=== PATIENT | female | born 1995 | race Caucasian/White ===

== ENCOUNTER 2017-03-12 18:45 | Emergency (ER) | payer BC, OTHER ==
[2017-03-12 21:28] LABS: ABSOLUTE EOSINOPHILS # (AUTO) 0.2 10^3/uL (0.0-0.6); ABSOLUTE LYMPHOCYTES (AUTO) 2.8 10^3/uL (0.5-4.7); ABSOLUTE MONOCYTES (AUTO) 0.8 10^3/uL (0.1-1.4); ABSOLUTE NEUT (AUTO) 6.4 10^3/uL (1.7-8.2); BASOPHILS % (AUTO) 0.4 % (0-2); EOSINOPHILS % (AUTO) 2.3 % (0-6); HEMATOCRIT 39.7 % (36.0-47.0); HEMOGLOBIN 13.4 g/dL (12.0-15.5); HGB HCT DIFFERENCE 0.5; LYMPHOCYTES % (AUTO) 27.5 % (13-45); MEAN CORPUSCULAR HGB CONC 33.8 g/dL (32.0-36.0); MEAN CORPUSCULAR VOLUME 92 fl (80-97); MONOCYTES % (AUTO) 7.5 % (3-13); RED BLOOD COUNT 4.33 10^6/uL (3.72-5.28); RED CELL DISTRIBUTION WIDTH 12.8 % (11.5-14.0); SEGMENTED NEUTROPHILS % (AUTO) 62.3 % (42-78); WHITE BLOOD COUNT 10.3 10^3/uL (4.0-10.5)
[2017-03-12 21:36] LABS: APPEARANCE,URINE SLIGHTLY-CLOUDY; BILIRUBIN,URINE NEGATIVE (NEGATIVE); GLUCOSE, URINE NEGATIVE (NEGATIVE); KETONES,URINE NEGATIVE (NEGATIVE); LEUKOCYTE ESTERASE,URINE MODERATE (NEGATIVE); NITRITE,URINE NEGATIVE (NEGATIVE); PROTEIN,URINE NEGATIVE (NEGATIVE); URINE SPECIFIC GRAVITY 1.018; UROBILINOGEN,URINE NEGATIVE mg/dL (<2.0)
[2017-03-12 21:42] LABS: ALANINE AMINOTRANSFERASE 31 U/L (9-52); ALBUMIN 4.5 g/dL (3.5-5.0); ALKALINE PHOSPHATASE 63 U/L (38-126); ANION GAP 11 (5-19); ASPARTATE AMINO TRANSFERASE 16 U/L (14-36); BILIRUBIN,DIRECT 0.3 mg/dL (0.0-0.4); BILIRUBIN,TOTAL 0.5 mg/dL (0.2-1.3); BLOOD UREA NITROGEN 12 mg/dL (7-20); CALCIUM 9.8 mg/dL (8.4-10.2); CARBON DIOXIDE 25 mmol/L (22-30); CHLORIDE 103 mmol/L (98-107); CREATININE RESULT 0.63 mg/dL (0.52-1.25); GLUCOSE 83 mg/dL (75-110); LIPASE 79.7 U/L (23-300); POTASSIUM 4.2 mmol/L (3.6-5.0); SODIUM 138.9 mmol/L (137-145); TOTAL PROTEIN 7.7 g/dL (6.3-8.2)
--- NOTE | 2017-03-12 23:34 | ER Document Report ---
ED Medical Screen (RME) - General Chief Complaint: Abdominal Pain Stated Complaint: ABDOMINAL PAIN Time Seen by Provider: 03/12/17 23:32 Notes: Patient is a 21-year-old female, no past medical history or surgeries, presents with 3 days of worsening right lower quadrant abdominal pain. There is also having nausea. She saw her primary care physician yesterday and had lab work, urine and x-ray that she said was unremarkable. She had a follow-up appointment today and was sent to the ER for possible CT. PE: RLQ tenderness. NAD. RRR. I have greeted and performed a rapid initial assessment of this patient. A comprehensive ED assessment and evaluation of the patient, analysis of test results and completion of the medical decision making process will be conducted by additional ED providers. TRAVEL OUTSIDE OF THE [place] IN LAST 30 DAYS: No - Related Data Allergies/Adverse Reactions: No Known Allergies Allergy (Unverified 03/12/17 19:26) Past Medical History - Social History Chew tobacco use (# tins/day): No Frequency of alcohol use: None Drug Abuse: None Renal/ Medical History: Denies: Hx Peritoneal Dialysis - Immunizations Hx Diphtheria, Pertussis, Tetanus Vaccination: Yes Physical Exam - Vital signs Vitals: Temp Pulse Resp BP Pulse Ox 98.5 F 99 20 151/97 H 99 03/12/17 19:23 03/12/17 19:23 03/12/17 19:23 03/12/17 19:23 03/12/17 19:23 Course - Vital Signs Vital signs: Temp Pulse Resp BP Pulse Ox 98.5 F 99 20 151/97 H 99 03/12/17 19:23 03/12/17 19:23 03/12/17 19:23 03/12/17 19:23 03/12/17 19:23 - Laboratory Result Diagrams: 03/12/17 21:10 03/12/17 21:10 Laboratory results interpreted by me: 03/12/17 21:10 Ur Leukocyte Esterase MODERATE H
--- NOTE | 2017-03-12 23:43 | ER Document Report ---
ED GI/ - General Mode of Arrival: Ambulatory Information source: Patient TRAVEL OUTSIDE OF THE [place] IN LAST 30 DAYS: No - HPI Patient complains to provider of: Abdominal pain, Other - Nausea <TREVIN DECKER - Last Filed: 03/13/17 02:49> <MAEGAN DAVIDSON - Last Filed: 03/13/17 05:36> - General Chief Complaint: Abdominal Pain Stated Complaint: ABDOMINAL PAIN Time Seen by Provider: 03/12/17 23:32 Notes: Patient is a 21-year-old female presents emergency department for 3 days of worsening right lower quadrant abdominal pain. Patient was seen by her PCP yesterday was unremarkable lab work, urine and x-ray. Patient states she was sent to the ER for possible CT scan. Patient states that when she is sitting still her pain is manageable but it is worse when she is walking or doing activity. Patient also complains of nausea. Patient has been taking ibuprofen for her pain which is managing well. Patient has no known allergies. (TREVIN DECKER) - Related Data Allergies/Adverse Reactions: No Known Allergies Allergy (Unverified 03/12/17 19:26) Past Medical History - General Information source: Patient - Social History Smoking Status: Never Smoker Cigarette use (# per day): No Chew tobacco use (# tins/day): No Frequency of alcohol use: None Drug Abuse: None Family History: None Patient has suicidal ideation: No Patient has homicidal ideation: No Surgical Hx: Negative - Immunizations Hx Diphtheria, Pertussis, Tetanus Vaccination: Yes <TREVIN DECKER - Last Filed: 03/13/17 02:49> Review of Systems - Review of Systems Constitutional: No symptoms reported EENT: No symptoms reported Cardiovascular: No symptoms reported Respiratory: No symptoms reported Gastrointestinal: See HPI, Abdominal pain, Nausea Genitourinary: No symptoms reported Female Genitourinary: No symptoms reported Musculoskeletal: No symptoms reported Skin: No symptoms reported Hematologic/Lymphatic: No symptoms reported Neurological/Psychological: No symptoms reported -: Yes All other systems reviewed and negative <TREVIN DECKER - Last Filed: 03/13/17 02:49> Physical Exam - Vital signs Interpretation: Hypertensive <TREVIN DECKER - Last Filed: 03/13/17 02:49> <MAEGAN DAVIDSON - Last Filed: 03/13/17 05:36> - Vital signs Vitals: Temp Pulse Resp BP Pulse Ox 98.5 F 99 20 151/97 H 99 03/12/17 19:23 03/12/17 19:23 03/12/17 19:23 03/12/17 19:23 03/12/17 19:23 - Notes Notes: GENERAL: Alert, interacts well. Mild distress. HEAD: Normocephalic, atraumatic. EYES: Appear normal. Pupils equal, round, and reactive to light. ENT: Moist mucus membranes, tongue midline. NECK: Full range of motion. Supple. Trachea midline. LUNGS: Clear to auscultation bilaterally, no wheezes, rales, or rhonchi. No respiratory distress. HEART: Regular rate and rhythm. No murmurs, gallops, or rubs. ABDOMEN: Soft, tenderness to palpate over the right umbilicus. Non-distended. Normal bowel sounds. EXTREMITIES: Moves all 4 extremities spontaneously. Normal strength. No edema. NEUROLOGICAL: Alert and oriented x3. Normal speech. No focal neurological deficits. GSC 15. PSYCH: Normal affect, normal mood. SKIN: Warm, dry, normal turgor. No rashes or lesions noted. (TREVIN DECKER) Course - Laboratory Result Diagrams: 03/12/17 21:10 03/12/17 21:10 <TREVIN DECKER - Last Filed: 03/13/17 02:49> - Laboratory Result Diagrams: 03/12/17 21:10 03/12/17 21:10 - Diagnostic Test Radiology reviewed: Reports reviewed <MAEGAN DAVIDSON - Last Filed: 03/13/17 05:36> - Re-evaluation Re-evalutation: 03/13/17 Patient with symptoms and CT consistent with epiploic appendagitis. Patient symptoms have been completely relieved with Bentyl. She will be discharged home with the same. Patient also given Zofran. Patient is instructed to follow -up with her doctor. I am unable to give her a copy of her CT report. Otherwise appears well. Blood work within normal limits. Vitals stable. Stable for discharge. Return if any worsening or concerning symptoms. Understands and agrees with plan. Grateful for care. (MAEGAN DAVIDSON) - Vital Signs Vital signs: Temp Pulse Resp BP Pulse Ox 98.2 F 77 16 141/86 H 100 03/13/17 03:28 03/13/17 03:28 03/13/17 03:28 03/13/17 03:28 03/13/17 03:28 - Laboratory Laboratory results interpreted by me: 03/12/17 21:10 Ur Leukocyte Esterase MODERATE H Discharge <TREVIN DECKER - Last Filed: 03/13/17 02:49> <MAEGAN DAVIDSON - Last Filed: 03/13/17 05:36> - Discharge Clinical Impression: Epiploic appendagitis Condition: Stable Disposition: HOME, SELF-CARE Instructions: Abdominal Pain ([facility]) Prescriptions: Dicyclomine HCl [Bentyl 20 mg Tablet] 20 mg PO TIDP PRN #30 tablet PRN Reason: Naproxen [Naprosyn 250 mg Tablet] 250 mg PO DAILY PRN #30 tablet PRN Reason: Forms: Return to Work Scribe Attestation: 03/13/17 05:36 I personally performed the services described in the documentation, reviewed and edited the documentation which was dictated to the scribe in my presence, and it accurately records my words and actions. (MAEGAN DAVIDSON) Scribe Documentation - Scribe Written by Yovanny:: Yovanny Munoz, 03/13/2017 3:00 acting as scribe for :: [email or web address] <TREVIN DECKER - Last Filed: 03/13/17 02:49>
[2017-03-13] MEDS ORDERED: DICYCLOMINE HCL 20 MG TABLET PO ONE (02:32)
[2017-03-13] MEDS ORDERED: ONDANSETRON ODT 4 MG TAB (6 TAB/DSPK) PO PRN (03:22)
[2017-03-13] MEDS ORDERED: HYDROCODONE/ACETAMINOPHEN 5-325 MG 6 TAB/DSPK PO PRN (03:22)
[2017-03-13 03:32] VITALS: BP 141/86
--- NOTE | 2017-03-15 00:38 | RADIOLOGY REPORT (SQ) ---
EXAM DESCRIPTION: CT ABD/PELVIS WITH IV ONLY COMPLETED DATE/TIME: 03/13/2017 1:17 am REASON FOR STUDY: RLQ pain COMPARISON: None. TECHNIQUE: 100 cc Isovue 370, IV contrast only. CT of the abdomen pelvis with coronal and sagittal reformations. Delayed imaging. LIMITATIONS: None. FINDINGS: Small, oval pericolonic fat nodule with hyperdense ring and surrounding inflammation assoc iated with the proximal transverse colon, image 52 of series 3 consistent with epiploic appendagitis. No significant free fluid and no free air. No evidence of appendicitis. Appendix is not definitiv johnny discerned. Moderate malrotation of the right kidney. Small L5-S1 disc bulge. Inferior chest, liver, spleen, gallbladder, pancreas, adrenal glands, renal system, gastrointestinal tract, pelvic organs, vasculature, lymphatics, and muscle skeleton appear otherwise intact. IMPRESSION: Epiploic appendagitis of the proximal transverse colon. TECHNICAL DOCUMENTATION: Job ID: [id number] [employer]- All Rights Reserved
== END 2017-03-13 03:35 | disposition home or self-care (01) ==
LOC: ER 18:45
DX: K63.89 Other specified diseases of intestine (principal); R10.31 Right lower quadrant pain; R11.0 Nausea; R10.815 Periumbilic abdominal tenderness
CPT/HCPCS: 99284; 36415; 83690; 85025; 81025; 80053; 81001; 74177; J3490

== ENCOUNTER 2017-12-18 21:20 | Emergency (ER) | payer BC ==
[2017-12-18 22:21] LABS: APPEARANCE,URINE SLIGHTLY-CLOUDY; BILIRUBIN,URINE NEGATIVE (NEGATIVE); COLOR,URINE YELLOW; GLUCOSE, URINE NEGATIVE (NEGATIVE); KETONES,URINE NEGATIVE (NEGATIVE); LEUKOCYTE ESTERASE,URINE TRACE (NEGATIVE); NITRITE,URINE NEGATIVE (NEGATIVE); PROTEIN,URINE 30 mg/dL (NEGATIVE); URINE SPECIFIC GRAVITY 1.021; UROBILINOGEN,URINE NEGATIVE mg/dL (<2.0)
[2017-12-18] MEDS ORDERED: CEPHALEXIN 500 MG CAPSULE PO ONE (23:14)
--- NOTE | 2017-12-18 23:18 | ER Document Report ---
ED General - General Chief Complaint: Urinary Problem Stated Complaint: ABDOMINAL PAIN Time Seen by Provider: 12/18/17 22:38 Notes: Patient is a 22-year-old female without chronic medical problems who presents with 3 days of dysuria and 1 day of suprapubic abdominal discomfort. She describes the abdominal discomfort as being an aching, throbbing soreness. Touching the area worsens the pain. Nothing improves the pain. She denies a history of similar symptoms in the past although she states that her initial symptoms felt more like a urinary tract infection. She denies any associated fever or constitutional symptoms. She has not seen her primary doctor regarding today's concerns. TRAVEL OUTSIDE OF THE [place] IN LAST 30 DAYS: No - Related Data Allergies/Adverse Reactions: No Known Allergies Allergy (Verified 12/18/17 22:32) Past Medical History - General Information source: Patient - Social History Smoking Status: Never Smoker Chew tobacco use (# tins/day): No Frequency of alcohol use: None Drug Abuse: None Lives with: Spouse/Significant other Family History: Reviewed & Not Pertinent Patient has suicidal ideation: No Patient has homicidal ideation: No Renal/ Medical History: Denies: Hx Peritoneal Dialysis - Immunizations Hx Diphtheria, Pertussis, Tetanus Vaccination: Yes Review of Systems - Review of Systems Notes: Constitutional: Negative for fever. HENT: Negative for sore throat. Eyes: Negative for visual changes. Cardiovascular: Negative for chest pain. Respiratory: Negative for shortness of breath. Gastrointestinal: Positive for lower abdominal pain Genitourinary: Positive for dysuria Musculoskeletal: Negative for back pain. Skin: Negative for rash. Neurological: Negative for headaches, weakness or numbness. 10 point ROS negative except as marked above and in HPI. Physical Exam - Vital signs Vitals: Temp Pulse Resp BP Pulse Ox 98.2 F 93 18 150/95 H 99 12/18/17 23:28 12/18/17 23:28 12/18/17 23:28 12/18/17 23:28 12/18/17 23:28 Interpretation: Hypertensive Notes: PHYSICAL EXAMINATION: GENERAL: Well-appearing, well-nourished and in no acute distress. HEAD: Atraumatic, normocephalic. EYES: Pupils equal round and reactive to light, extraocular movements intact, sclera anicteric, conjunctiva are normal. ENT: nares patent, oropharynx clear without exudates. Moist mucous membranes. NECK: Normal range of motion, supple without lymphadenopathy LUNGS: Breath sounds clear to auscultation bilaterally and equal. No wheezes rales or rhonchi. HEART: Regular rate and rhythm without murmurs ABDOMEN: Soft, mild suprapubic abdominal tenderness but no other localized areas of tenderness, normoactive bowel sounds. No guarding, no rebound. No masses appreciated. EXTREMITIES: Normal range of motion, no pitting or edema. No cyanosis. NEUROLOGICAL: No focal neurological deficits. Moves all extremities spontaneously and on command. PSYCH: Normal mood, normal affect. SKIN: Warm, Dry, normal turgor, no rashes or lesions noted. Course - Re-evaluation Re-evalutation: 12/18/17 23:14 Your urine shows findings consistent with a urinary tract infection. Please take all the antibiotics as directed even if your symptoms have improved. Please follow-up with your primary care physician as needed. Return to emergency room if you develop fever >101F, persistent vomiting, become lethargic , have severe pain in your sides, or any other symptoms that are concerning to you. - Vital Signs Vital signs: Temp Pulse Resp BP Pulse Ox 98.2 F 93 18 150/95 H 99 12/18/17 23:28 12/18/17 23:28 12/18/17 23:28 12/18/17 23:28 12/18/17 23:28 - Laboratory Laboratory results interpreted by me: 12/18/17 21:57 Urine Protein 30 H Urine Blood SMALL H Ur Leukocyte Esterase TRACE H Discharge - Discharge Clinical Impression: Suprapubic abdominal pain Urinary tract infection Qualifiers: Urinary tract infection type: acute cystitis Hematuria presence: without hematuria Qualified Code(s): N30.00 - Acute cystitis without hematuria Condition: Good Disposition: HOME, SELF-CARE Additional Instructions: Your urine shows findings consistent with a urinary tract infection. Please take all the antibiotics as directed even if your symptoms have improved. Please follow-up with your primary care physician as needed. Return to emergency room if you develop fever >101F, persistent vomiting, become lethargic , have severe pain in your sides, or any other symptoms that are concerning to you. Prescriptions: Cephalexin Monohydrate [Keflex 500 mg Capsule] 500 mg PO Q6H 5 Days capsule Referrals: ZEE,IVANNA, PA-C [Primary Care Provider] - Follow up as needed
[2017-12-18 23:32] VITALS: BP 150/95
== END 2017-12-18 23:30 | disposition home or self-care (01) ==
LOC: ER 21:20
DX: N30.00 Acute cystitis without hematuria (principal); R10.30 Lower abdominal pain, unspecified
CPT/HCPCS: 36415; 81001; 81025; 87086; 87088; 87186; 99283

== ENCOUNTER 2019-12-18 20:03 | Outpatient (CLI) | payer BC ==
[2019-12-18 20:39] LABS: APPEARANCE,URINE SLIGHTLY-CLOUDY; BILIRUBIN,URINE NEGATIVE (NEGATIVE); COLOR,URINE YELLOW; GLUCOSE, URINE NEGATIVE (NEGATIVE); KETONES,URINE 80 mg/dL (NEGATIVE); LEUKOCYTE ESTERASE,URINE TRACE (NEGATIVE); NITRITE,URINE NEGATIVE (NEGATIVE); PROTEIN,URINE NEGATIVE (NEGATIVE); URINE SPECIFIC GRAVITY 1.023; UROBILINOGEN,URINE NEGATIVE mg/dL (<2.0)
[2019-12-18 20:59] LABS: URINE AMPHETAMINES SCREEN NEGATIVE; URINE BARBITURATES SCREEN NEGATIVE; URINE BENZODIAZEPINES SCREEN NEGATIVE; URINE COCAINE SCREEN NEGATIVE; URINE MARIJUANA (THC) SCREEN NEGATIVE; URINE METHADONE SCREEN NEGATIVE; URINE PHENCYCLIDINE SCREEN NEGATIVE
--- NOTE | 2019-12-18 21:05 | Non Stress Test Report ---
Non Stress Test Datetime Report Generated by CPN: 12/18/2019 21:04 DEMOGRAPHIC EGA NST: 33.1 INDICATION Indication for Study (NST) Other: LC URINE RESULTS Urine Protein, NST: Negative Urine Ketones - NST: Positive Urine Glucose - NST: Negative Urine Blood - NST: Negative MONITORING Monitor Explained: Monitor Explained; Test Explained; Patient Verbalized Understanding Time on Monitor: 12/18/2019 20:18 Time off Monitor: 12/18/2019 20:43 NST Duration: 25 NST INTERVENTIONS NST Interventions: PO Hydration; Reposition Patient Physician Notified NST: Carter BABY A: [id number] BABY A Movement : Present Contraction Frequency : 0 FHR Baseline : 145 Accelerations : 15X15 Decelerations : None Variability : Moderate 6-25bpm NST Review: Meets Criteria for Reactive NST NST Review and Verified By : Jayshree Herman RN NST Results: Reactive NST REPORT Report Trigger: Send Report
== END 2019-12-18 21:08 | disposition home or self-care (01) ==
LOC: LC 20:03
PROVIDERS: ATTEND Obstetrics & Gynecology Gynecology
DX: O24.419 Gestational diabetes mellitus in pregnancy, unspecified control (principal); Z3A.33 33 weeks gestation of pregnancy; W19.XXXA Unspecified fall, initial encounter
CPT/HCPCS: 59025; 80307; 81005

== ENCOUNTER 2020-02-04 02:50 | Inpatient (IN) | payer BC ==
[2020-02-04] MEDS: RINGERS SOLUTION,LACTATED 1,000 ML IV PRN ×3 (03:27→14:00)
[2020-02-04 03:38] LABS: ABSOLUTE BASOPHILS # (AUTO) 0.1 10^3/uL (0.0-0.2); ABSOLUTE EOSINOPHILS # (AUTO) 0.2 10^3/uL (0.0-0.6); ABSOLUTE LYMPHOCYTES (AUTO) 2.2 10^3/uL (0.5-4.7); ABSOLUTE NEUT (AUTO) 9.4 10^3/uL (1.7-8.2); BASOPHILS % (AUTO) 0.5 % (0-2); EOSINOPHILS % (AUTO) 1.2 % (0-6); HEMATOCRIT 37.5 % (36.0-47.0); HEMOGLOBIN 12.8 g/dL (12.0-15.5); LYMPHOCYTES % (AUTO) 17.2 % (13-45); MEAN CORPUSCULAR HEMOGLOBIN 30.9 pg (27.0-33.4); MEAN CORPUSCULAR HGB CONC 34.1 g/dL (32.0-36.0); MEAN CORPUSCULAR VOLUME 91 fl (80-97); MONOCYTES % (AUTO) 8.1 % (3-13); PLATELET COUNT 288 10^3/uL (150-450); RED BLOOD COUNT 4.13 10^6/uL (3.72-5.28); TOTAL CELLS COUNTED % (AUTO) 100 %; WHITE BLOOD COUNT 12.9 10^3/uL (4.0-10.5)
[2020-02-04 04:01] LABS: APPEARANCE,URINE SLIGHTLY-CLOUDY; BILIRUBIN,URINE NEGATIVE (NEGATIVE); COLOR,URINE YELLOW; GLUCOSE, URINE NEGATIVE (NEGATIVE); KETONES,URINE NEGATIVE (NEGATIVE); LEUKOCYTE ESTERASE,URINE TRACE (NEGATIVE); NITRITE,URINE NEGATIVE (NEGATIVE); PROTEIN,URINE NEGATIVE (NEGATIVE); URINE SPECIFIC GRAVITY 1.018; UROBILINOGEN,URINE NEGATIVE mg/dL (<2.0)
[2020-02-04 04:23] LABS: URINE AMPHETAMINES SCREEN NEGATIVE; URINE BARBITURATES SCREEN NEGATIVE; URINE BENZODIAZEPINES SCREEN NEGATIVE; URINE COCAINE SCREEN NEGATIVE; URINE MARIJUANA (THC) SCREEN NEGATIVE; URINE METHADONE SCREEN NEGATIVE; URINE PHENCYCLIDINE SCREEN NEGATIVE
[2020-02-04 05:14] LABS: ALBUMIN 3.6 g/dL (3.5-5.0); ALKALINE PHOSPHATASE 100 U/L (38-126); ASPARTATE AMINO TRANSFERASE 16 U/L (14-36); BILIRUBIN,TOTAL 0.3 mg/dL (0.2-1.3); BLOOD UREA NITROGEN 15 mg/dL (7-20); CALCIUM 9.9 mg/dL (8.4-10.2); CHLORIDE 107 mmol/L (98-107); GLUCOSE 87 mg/dL (75-110); POTASSIUM 4.4 mmol/L (3.6-5.0); TOTAL PROTEIN 6.5 g/dL (6.3-8.2)
[2020-02-04 05:24] LABS: ANION GAP 7 (5-19); CARBON DIOXIDE 21 mmol/L (22-30)
[2020-02-04] MEDS ORDERED: LABETALOL HCL INJ 20 MG/4 ML DISP.SYRIN IV ONE ×2 (08:08→08:12)
[2020-02-04] MEDS ORDERED: OXYTOCIN/0.9 % SODIUM CHLORIDE 30 UNIT/500 ML RTUINJ IV PRN ×2 (09:20→19:32)
[2020-02-04] MEDS ORDERED: OXYTOCIN/0.9 % SODIUM CHLORIDE 30 UNIT/500 ML RTUINJ ONE (09:22)
[2020-02-04] MEDS ORDERED: LABETALOL HCL 200 MG TABLET ONE (09:24)
[2020-02-04] MEDS ORDERED: LEVOTHYROXINE SODIUM 0.05 MG TABLET ONE (09:24)
[2020-02-04] MEDS: LABETALOL HCL 200 MG TABLET PO SCH ×2 (09:27→22:44)
[2020-02-04] MEDS ORDERED: NALBUPHINE HCL INJ 10 MG/1 ML AMPULE ONE (10:01)
[2020-02-04] MEDS ORDERED: PROMETHAZINE HCL INJ 25 MG/1 ML VIAL ONE (10:01)
[2020-02-04] MEDS ORDERED: NALBUPHINE HCL INJ 10 MG/1 ML AMPULE IV ONE (10:05)
[2020-02-04] MEDS ORDERED: PROMETHAZINE HCL INJ 25 MG/1 ML VIAL IV ONE (10:05)
--- NOTE | 2020-02-04 10:19 | Admission Physical ---
Datetime Report Generated by CPN: 02/04/2020 10:19 CURRENT ADMISSION Chief Complaint: Suspected Ruptured Membranes Chief Complaint Other: Reports SROM at approximately 0150 and fluid was clear.. Irregular ctx. Good FM Admit Impression : Term, Intrauterine ; Ruptured Membranes Admit Plan: Admit to Unit; Initiate Labor Protocol; Initiate Labor Augmentation Protocol ALLERGIES Medication Allergies: No Medication Allergies: No Known Allergies (12/18/2019) Latex: No Latex Allergies OBSTETRICAL HISTORY EDC: 02/04/2020 00:00 : 2 Para: 0 Term: 0 : 0 SAB: 1 IAB: 0 Ectopic: 0 Livin Cesareans: 0 VBACs: 0 Multiple Births: 0 Gestational Diabetes: Yes Rh Sensitization: No Incompetent Cervix: No AWA: No Infertility: No ART Treatment: No Uterine Anomaly: No IUGR: No Hx Previous C/S: No Macrosomia: No Hx Loss/Stillborn: No PIH: No Hx : No Placenta Previa/Abruption: No Depression/PP Depression: No PTL/PROM: No Post Hemorrhage: No Current Procedures: Ultrasound; NST Obstetrical History Comments: G1: chemical preg G2: GDM on metformin 500mg TID, CHTN on baby ASA SEE RECORDS Alcohol: No Marijuana : No Cocaine: No Other Illicit Drugs: No Cigarettes: Never Smoker. [id number] MEDICAL HISTORY Diabetes: No Diabetes Type: Gestational Diabetes Blood Transfusion: No Pulmonary Disease (Asthma, TB): No Breast Disease: No Hypertension: Unknown Dredge Hand Surgery: No Heart Disease: No Hosp/Surgery: No Autoimmune Disorder: No Anesthetic Complications: No Kidney Disease: No Abnormal Pap Smear: No Neuro/Epilepsy: No Psychiatric Disorders: No Other Medical Diseases: No Hepatitis/Liver Disease: No Significant Family History: No Varicosities/Phlebitis: No Trauma/Violence : No Thyroid Dysfunction: Yes Medical History Comments: GDM, hypothyroidism (takes synthroid), tubes in ears as a child, CHTN, PCOS INFECTIOUS HISTORY Gonorrhea: No Genital Herpes: No Chlamydia: No Tuberculosis: No Syphilis: No Hepatitis: No HIV/AIDS Exposure: No Rash or Viral Illness: No HPV: No PHYSICAL EXAM General: Normal HEENT: Normal Neurologic: Normal Thyroid: Normal Heart: Normal Lungs: Normal Breast: Normal Back: Normal Abdomen: Normal Genitourinary Exam: Normal Extremities: Normal DTRs: Normal Pelvic Type: Adequate Vital Signs: Reviewed Details Vital Signs: Elevated blood pressures: Hx of cHTN no meds VAGINAL EXAM Dilatation: 1 Effacement: 60 Station: -2 Contraction Comments: irregular MEMBRANES Pooling: Positive Membranes: Ruptured Amniotic Fluid Color: Clear FETUS A EGA: 40.0 Monitoring: External US FHR- Baseline: 130 Variability: Moderate 6-25bpm Accelerations: 15X15 Decelerations: None FHR Category: Category I Presentation: Vertex Admit Comment: at 40.0 wks EGA with SROM at 0150, clear -Admit to LDR -CEFM and toco -NPO and IVFs: LR at 125 cc/hr after 1 liter bolus -GBS negative -Hx of cHTN and now elevated b/p's . Labs on admit normal but will add a P:C . Received Labetolol 20mg x1 this am for severe range b/p. Labetolol 200mg BID PO started as well. Monitor for severe preeclampsia and if develops: will need Mag sulfate for seizure prophylaxis -Continue home meds Metformin for A2GDM and Synthroid for hypothyroidism -If no regular contractions, Begin pitocin at low dosem and titrate per order -Anticipate PLANS FOR LABOR AND DELIVERY Labor and Delivery: Plan Pain Management: Natural Other Pain Management Plans: unsure Feeding Preference: Breast Benefit of Breast Feed Discussed: Yes Circumcision: No INFORMED CONSENT Informed Consent Obtained: Vaginal Delivery; Section Delivery; Risks, Benefits and Alternatives Discussed Signature: with User ID: Stevan : with User ID: Stevan
[2020-02-04] MEDS ORDERED: FENTANYL CITRATE INJ/PF 100 MCG/2 ML AMPUL ONE (10:47)
[2020-02-04] MEDS ORDERED: BUPIVACAINE HCL 0.25 % INJ/PF (2.5 MG/1 ML) 30 ML VIAL ONE (10:48)
[2020-02-04] MEDS ORDERED: FENTANYL/BUPIVACAINE/NS/PF 300 MCG/150 ML RTUINJ EPI ONE (10:48)
[2020-02-04] MEDS ORDERED: EPHEDRINE SULFATE INJ 50 MG/1 ML AMPULE ONE (10:48)
[2020-02-04] MEDS ORDERED: MISOPROSTOL 0.2 MG TABLET ONE (11:56)
[2020-02-04] MEDS: LEVOTHYROXINE SODIUM 0.025 MG TABLET PO SCH (14:00)
[2020-02-04] MEDS: METFORMIN HCL 500 MG TABLET PO SCH ×2 (14:00→21:20)
[2020-02-04 14:48] LABS: UR PRO/CREAT RATIO RESULT 0.5 mg/mg (0.0-0.2); URINE CREATININE 24.6 mg/dL (16-327); URINE PROTEIN 12.1 mg/dL (<12)
[2020-02-04] MEDS ORDERED: GENTAMICIN SULFATE INJ 80 MG/2 ML VIAL ONE (16:36)
[2020-02-04] MEDS ORDERED: AMPICILLIN SOD INJ 2 GM VIAL ONE ×2 (16:37→22:24)
[2020-02-04] MEDS ORDERED: GENTAMICIN SULFATE INJ 80 MG/2 ML VIAL IV SCH ×2 (17:00→18:00)
[2020-02-04] MEDS ORDERED: AMPICILLIN SOD INJ 2 GM VIAL IM SCH (17:00)
[2020-02-04] MEDS ORDERED: AMPICILLIN SOD INJ 2 GM VIAL IV SCH ×2 (17:30→18:00)
[2020-02-04] MEDS ORDERED: ACETAMINOPHEN 1,000 MG/100 ML RTUPB IV ONE (18:00)
[2020-02-04] MEDS ORDERED: ACETAMINOPHEN 1,000 MG/100 ML RTUPB IV PRN (18:01)
[2020-02-04] MEDS ORDERED: LIDOCAINE 1% INJ-PF (10 MG/ML) 30 ML SDV ONE (19:10)
[2020-02-04] MEDS ORDERED: IBUPROFEN 800 MG TABLET ONE (19:29)
[2020-02-04] MEDS ORDERED: PSEUDOEPHEDRINE HCL 30 MG TABLET PO PRN (19:32)
[2020-02-04] MEDS ORDERED: DIPHENHYDRAMINE HCL 25 MG CAPSULE PO PRN (19:32)
[2020-02-04] MEDS ORDERED: PROMETHAZINE HCL 25 MG SUPP.RECT PR PRN (19:32)
[2020-02-04] MEDS ORDERED: ZOLPIDEM TARTRATE 5 MG TABLET PO PRN (19:32)
[2020-02-04] MEDS ORDERED: MAGNESIUM HYDROXIDE SUSP 30 ML UDCUP PO PRN (19:32)
[2020-02-04] MEDS ORDERED: MEASLES,MUMPS&RUBELLA VACC/PF 0.5 ML VIAL SUBCUT PRN (19:32)
[2020-02-04] MEDS ORDERED: ACETAMINOPHEN WITH CODEINE #3 TABLET PO PRN ×2 (19:32)
[2020-02-04] MEDS ORDERED: NA PHOS,M-B/NA PHOS,DI-BA (ADULT) 133 ML ENEMA PR PRN (19:32)
[2020-02-04] MEDS ORDERED: DIBUCAINE 1% OINTMENT 28 GM TP PRN (19:32)
[2020-02-04] MEDS ORDERED: GLYCERIN/WITCH HAZEL LEAF 1 EACH MED..WIPE TP PRN (19:32)
[2020-02-04] MEDS ORDERED: ACETAMINOPHEN 325 MG TABLET PO PRN (19:32)
[2020-02-04] MEDS ORDERED: DIPH/PERTUSS(ACELL)/TETANUS VAC/PF 0.5 ML SYR (>=10YO) IM PRN (19:32)
[2020-02-04] MEDS ORDERED: PROMETHAZINE HCL INJ 25 MG/1 ML VIAL IV PRN (19:32)
[2020-02-04] MEDS ORDERED: PROMETHAZINE HCL 25 MG TABLET PO PRN (19:32)
[2020-02-04] MEDS ORDERED: ACETAMINOPHEN 650 MG SUPP.RECT PR PRN (19:32)
[2020-02-04] MEDS: IBUPROFEN 800 MG TABLET PO SCH (21:14)
[2020-02-04] MEDS: FAMOTIDINE 20 MG TABLET PO SCH (22:44)
[2020-02-04] MEDS: AMPICILLIN SODIUM 2 GM in NORMAL SALINE 100 ML IV SCH (22:45)
[2020-02-05] MEDS ORDERED: AMPICILLIN SOD INJ 2 GM VIAL ONE (01:13)
[2020-02-05] MEDS ORDERED: GENTAMICIN SULFATE INJ 80 MG/2 ML VIAL ONE (01:13)
[2020-02-05] MEDS: GENTAMICIN SULFATE 140 MG in DEXTROSE 5%-WATER 100 ML IV SCH ×3 (01:28→17:54)
[2020-02-05] MEDS: LEVOTHYROXINE SODIUM 0.025 MG TABLET PO SCH (05:14)
[2020-02-05] MEDS: IBUPROFEN 800 MG TABLET PO SCH ×3 (05:14→21:34)
[2020-02-05] MEDS: AMPICILLIN SODIUM 2 GM in NORMAL SALINE 100 ML IV SCH ×3 (05:14→17:16)
[2020-02-05 07:53] LABS: HEMATOCRIT 30.7 % (36.0-47.0); HEMOGLOBIN 10.9 g/dL (12.0-15.5); MEAN CORPUSCULAR HEMOGLOBIN 31.9 pg (27.0-33.4); MEAN CORPUSCULAR HGB CONC 35.3 g/dL (32.0-36.0); MEAN CORPUSCULAR VOLUME 90 fl (80-97); PLATELET COUNT 210 10^3/uL (150-450); RED CELL DISTRIBUTION WIDTH 13.7 % (11.5-14.0); WHITE BLOOD COUNT 14.4 10^3/uL (4.0-10.5)
[2020-02-05] MEDS: METFORMIN HCL 500 MG TABLET PO SCH ×3 (08:28→17:16)
--- NOTE | 2020-02-05 08:57 | PDOC PROGRESS REPORT ---
Subjective-OB Progress Note for:: 02/05/20 Subjective: Doing well, no concerns. She reports light bleeding, reg diet and voiding without difficulty. Physical Exam (OB) Vital Signs: Temp Pulse Resp BP Pulse Ox 97.5 F 89 16 102/58 L 98 02/05/20 03:06 02/05/20 03:06 02/05/20 03:06 02/05/20 03:06 02/05/20 03:06 Intake & Output 02/04/20 02/05/20 02/06/20 06:59 06:59 06:59 Intake Total 1521.5 Balance 1521.5 Weight 92.5 kg - Lochia Lochia Amount: Scant < 10 ml Lochia Color: Rubra/Red - Abdomen Description: Tender, Soft Hernia Present: No Fundal Description: Firm, Midline Fundal Height: u/u - u/2 Objective-Diagnostic Laboratory: 02/05/20 07:19 02/04/20 03:27 02/05/20 07:19 WBC 14.4 H RBC 3.40 L Hgb 10.9 L Hct 30.7 L MCV 90 MCH 31.9 MCHC 35.3 RDW 13.7 Plt Count 210 Assessment and Plan(PN) - Assessment and Plan (1) (normal spontaneous vaginal delivery) Is this a current diagnosis for this admission?: Yes (2) Second degree perineal laceration Is this a current diagnosis for this admission?: Yes (3) Chorioamnionitis, delivered, current hospitalization Is this a current diagnosis for this admission?: Yes (4) PCOS (polycystic ovarian syndrome) Is this a current diagnosis for this admission?: Yes (5) Chronic hypertension affecting Is this a current diagnosis for this admission?: Yes - Time Spent with Patient Time with patient: Less than 15 minutes Medications reviewed and adjusted accordingly: Yes - Disposition Anticipated Discharge: Home Within: within 24 hours
[2020-02-05] MEDS: FERROUS SULFATE 325 MG TABLET PO SCH ×2 (10:20→17:16)
[2020-02-05] MEDS: FAMOTIDINE 20 MG TABLET PO SCH ×2 (10:20→21:36)
[2020-02-05] MEDS: LABETALOL HCL 200 MG TABLET PO SCH ×2 (10:20→21:32)
[2020-02-05] MEDS: SENNOSIDES/DOCUSATE 8.6-50 MG 1 EACH TABLET PO SCH (10:20)
[2020-02-05] MEDS: DOCUSATE SODIUM 100 MG CAPSULE PO SCH ×2 (10:20→17:16)
[2020-02-05] MEDS: PRENATAL VITAMIN W DHA CAPSULE PO SCH (10:20)
[2020-02-05] MEDS: BENZOCAINE/MENTHOL AEROSOL SPRAY 56 ML TOP PRN (19:51)
[2020-02-06] MEDS: LEVOTHYROXINE SODIUM 0.025 MG TABLET PO SCH (06:13)
[2020-02-06] MEDS: IBUPROFEN 800 MG TABLET PO SCH ×2 (06:13→14:24)
[2020-02-06] MEDS: METFORMIN HCL 500 MG TABLET PO SCH ×2 (07:37→11:58)
[2020-02-06 08:41] VITALS: BP 139/89
--- NOTE | 2020-02-06 09:08 | PDOC PROGRESS REPORT ---
Subjective-OB Progress Note for:: 02/06/20 Subjective: Doing well, eating bkf, hsb at BS, , no c/o Physical Exam (OB) Vital Signs: Temp Pulse Resp BP Pulse Ox 97.1 F 75 16 139/89 H 99 02/06/20 08:38 02/06/20 08:38 02/06/20 08:38 02/06/20 08:38 02/06/20 08:38 Intake & Output 02/05/20 02/06/20 02/07/20 06:59 06:59 06:59 Intake Total 1621.5 907.0 Balance 1621.5 907.0 - PIH/Pre-Eclampsia Headache: Absent Visual Changes: No - Lochia Lochia Amount: Scant < 10 ml Lochia Color: Rubra/Red - Abdomen Description: Tender, Soft Hernia Present: No Fundal Description: Firm, Midline Fundal Height: u/3 - u/4 Objective-Diagnostic Laboratory: 02/05/20 07:19 02/04/20 03:27 Assessment and Plan(PN) - Assessment and Plan (1) (normal spontaneous vaginal delivery) Is this a current diagnosis for this admission?: Yes (2) Second degree perineal laceration Is this a current diagnosis for this admission?: Yes (3) Chorioamnionitis, delivered, current hospitalization Is this a current diagnosis for this admission?: Yes (4) PCOS (polycystic ovarian syndrome) Is this a current diagnosis for this admission?: Yes (5) Chronic hypertension affecting Is this a current diagnosis for this admission?: Yes - Time Spent with Patient Time with patient: Less than 15 minutes Medications reviewed and adjusted accordingly: Yes - Disposition Anticipated Discharge: Home
[2020-02-06] MEDS: PRENATAL VITAMIN W DHA CAPSULE PO SCH (09:15)
[2020-02-06] MEDS: DOCUSATE SODIUM 100 MG CAPSULE PO SCH ×2 (09:18→18:06)
[2020-02-06] MEDS: FERROUS SULFATE 325 MG TABLET PO SCH ×2 (09:18→18:06)
[2020-02-06] MEDS: LABETALOL HCL 200 MG TABLET PO SCH (09:19)
[2020-02-06] MEDS: FAMOTIDINE 20 MG TABLET PO SCH (09:19)
--- NOTE | 2020-02-06 09:19 | PDOC DISCHARGE SUMMARY ---
Impression - Admit/DC Date/PCP Admission Date/Primary Care Provider: 02/04/20 03:18 NEMESIO GARNER MD Discharge Date: 02/06/20 - Discharge Diagnosis (1) (normal spontaneous vaginal delivery) Is this a current diagnosis for this admission?: Yes (2) Second degree perineal laceration Is this a current diagnosis for this admission?: Yes (3) Chorioamnionitis, delivered, current hospitalization Is this a current diagnosis for this admission?: Yes (4) PCOS (polycystic ovarian syndrome) Is this a current diagnosis for this admission?: Yes (5) Chronic hypertension affecting Is this a current diagnosis for this admission?: Yes - Additional Information Resuscitation Status: Full Code Discharge Diet: As Tolerated, Regular Discharge Activity: Activity As Tolerated, Pelvic Rest Referrals: NEMESIO GARNER MD [Primary Care Provider] - (2 weeks ck BP) Prescriptions: Labetalol HCl [Normodyne 200 mg Tablet] 200 mg PO Q12 #60 tablet Home Medications: Levothyroxine Sodium [Synthroid 0.025 mg Tablet] 1 tab PO DAILY 12/18/19 Vit,Calc76/Iron/Folic [Pnv 29-1 Tablet] 1 tab PO DAILY 12/18/19 Labetalol HCl [Normodyne 200 mg Tablet] 200 mg PO Q12 #60 tablet 02/06/20 Levothyroxine Sodium [Synthroid 0.025 mg Tablet] 0.025 mg PO Q6AM tablet 02/06/20 HPI Gestational Age: 40 Reason(s) for Admission: Onset of Labor, PROM, PIH, Gestional Diabetes Procedures: NST, Ultrasound Intrapartum Procedure(s): Spontaneous Vaginal Delivery Complication(s): Laceration-Perineal Laceration-Degree: 2nd Hospital Course Hospital Course: routine Results Laboratory Results: WBC 14.4 10^3/uL (4.0-10.5) H 02/05/20 07:19 RBC 3.40 10^6/uL (3.72-5.28) L 02/05/20 07:19 Hgb 10.9 g/dL (12.0-15.5) L 02/05/20 07:19 Hct 30.7 % (36.0-47.0) L 02/05/20 07:19 MCV 90 fl (80-97) 02/05/20 07:19 MCH 31.9 pg (27.0-33.4) 02/05/20 07: MCHC 35.3 g/dL (32.0-36.0) 02/05/20 07:19 RDW 13.7 % (11.5-14.0) 02/05/20 07:19 Plt Count 210 10^3/uL (150-450) 02/05/20 07:19 Lymph % (Auto) 17.2 % (13-45) 02/04/20 03:27 [place] % (Auto) 8.1 % (3-13) 02/04/20 03:27 Eos % (Auto) 1.2 % (0-6) 02/04/20 03:27 Baso % (Auto) 0.5 % (0-2) 02/04/20 03:27 Absolute Neuts (auto) 9.4 10^3/uL (1.7-8.2) H 02/04/20 03:27 Absolute Lymphs (auto) 2.2 10^3/uL (0.5-4.7) 02/04/20 03:27 Absolute Monos (auto) 1.0 10^3/uL (0.1-1.4) 02/04/20 03:27 Absolute Eos (auto) 0.2 10^3/uL (0.0-0.6) 02/04/20 03:27 Absolute Basos (auto) 0.1 10^3/uL (0.0-0.2) 02/04/20 03:27 Seg Neutrophils % 73.0 % (42-78) 02/04/20 03:27 Sodium 135.4 mmol/L (137-145) L 02/04/20 03:27 Potassium 4.4 mmol/L (3.6-5.0) 02/04/20 03:27 Chloride 107 mmol/L (98-107) 02/04/20 03:27 Carbon Dioxide 21 mmol/L (22-30) L 02/04/20 03:27 Anion Gap 7 (5-19) 02/04/20 03:27 BUN 15 mg/dL (7-20) 02/04/20 03:27 Creatinine 0.46 mg/dL (0.52-1.25) L 02/04/20 03:27 Est GFR ( Amer) > 60 (>60) 02/04/20 03:27 Est GFR (MDRD) Non-Af > 60 (>60) 02/04/20 03:27 Glucose 87 mg/dL (75-110) 02/04/20 03:27 Uric Acid 5.0 mg/dL (2.5-6.2) 02/04/20 03:27 Calcium 9.9 mg/dL (8.4-10.2) 02/04/20 03:27 Total Bilirubin 0.3 mg/dL (0.2-1.3) 02/04/20 03:27 Direct Bilirubin 0.0 mg/dL (0.0-0.4) 02/04/20 03:27 Neonat Total Bilirubin Not Reportable 02/04/20 03:27 Neonat Direct Bilirubin Not Reportable 02/04/20 03:27 Neonat Indirect Bili Not Reportable 02/04/20 03:27 AST 16 U/L (14-36) 02/04/20 03:27 ALT 13 U/L (<35) 02/04/20 03:27 Alkaline Phosphatase 100 U/L (38-126) 02/04/20 03:27 Lactate Dehydrogenase 124 U/L (120-246) 02/04/20 03:27 Total Protein 6.5 g/dL (6.3-8.2) 02/04/20 03:27 Albumin 3.6 g/dL (3.5-5.0) 02/04/20 03:27 Urine Color YELLOW 02/04/20 03:05 Urine Appearance SLIGHTLY-CLOUDY 02/04/20 03:05 Urine pH 6.0 (5.0-9.0) 02/04/20 03:05 Ur Specific [place] 1.018 02/04/20 03:05 Urine Protein NEGATIVE mg/dL (NEGATIVE) 02/04/20 03:05 Urine Glucose (UA) NEGATIVE mg/dL (NEGATIVE) 02/04/20 03:05 Urine Ketones NEGATIVE mg/dL (NEGATIVE) 02/04/20 03:05 Urine Blood NEGATIVE (NEGATIVE) 02/04/20 03:05 Urine Nitrite NEGATIVE (NEGATIVE) 02/04/20 03:05 Urine Bilirubin NEGATIVE (NEGATIVE) 02/04/20 03:05 Urine Urobilinogen NEGATIVE mg/dL (<2.0) 02/04/20 03:05 Ur Leukocyte Esterase TRACE (NEGATIVE) H 02/04/20 03:05 Urine Creatinine 24.6 mg/dL (16-327) 02/04/20 13:30 Protein/Creatinin Ratio 0.5 mg/mg (0.0-0.2) H 02/04/20 13:30 Urine Total Protein 12.1 mg/dL (<12) H 02/04/20 13:30 Urine Ascorbic Acid NEGATIVE (NEGATIVE) 02/04/20 03:05 Urine Opiates Screen NEGATIVE 02/04/20 03:05 Urine Methadone Screen NEGATIVE 02/04/20 03:05 Ur Barbiturates Screen NEGATIVE 02/04/20 03:05 Ur Phencyclidine Scrn NEGATIVE 02/04/20 03:05 Ur Amphetamines Screen NEGATIVE 02/04/20 03:05 U Benzodiazepines Scrn NEGATIVE 02/04/20 03:05 Urine Cocaine Screen NEGATIVE 02/04/20 03:05 U Marijuana (THC) Screen NEGATIVE 02/04/20 03:05 RPR NONREACTIVE (NONREACTIVE) 02/04/20 03:27 Blood Type O POSITIVE 02/04/20 03:27 Antibody Screen NEGATIVE 02/04/20 03:27 Plan Health Concerns: BP Plan of Treatment: d/c home, continue BP meds, PNV;s, rv S&S to report Goals: no complications Time Spent: Less than 30 Minutes
[2020-02-06] MEDS: SENNOSIDES/DOCUSATE 8.6-50 MG 1 EACH TABLET PO SCH (09:20)
[2020-02-06 10:22] LABS: GENTAMICIN-TROUGH < 0.6 ug/mL (<2.0)
[2020-02-06] MEDS: BENZOCAINE/MENTHOL AEROSOL SPRAY 56 ML TOP PRN (18:06)
--- NOTE | 2020-02-08 11:53 | Delivery Summary ---
Del Sum A-C Datetime Report Generated by CPN: 02/08/2020 11:53 DELIVERY PERSONNEL DELIVERY PERSONNEL: [id number] Delivery Doctor:: Cristy Gabriel MD Labor and Delivery Nurse:: Mirna Stewart, RN Nursery Nurse:: Patsy Lucero RN Nursery Nurse:: Irlanda Saldana RN Boilermaker Apprentice/PLANT WORKER: Lisa Knapp CST Boilermaker Apprentice/PLANT WORKER: Thomas Ayala, MANAGER SALES TRAINING Additional Personnel: : Clarice Dobbins, RN MATERNAL INFORMATION Delivery Anesthesia: Epidural Medications After Delivery: Pitocin 30 Units in 500ml NS/D5W Delivery QBL: 200 Maternal Complications: Maternal Fever Provider Comments: Called to liban wiseman as she was complete and +2. Pushed through several contractions and delivered a viable female in the vertex presentation (ROSEY). The shoulders and rest of the body followed easily. Infant crying at delivery. Cord clamping delayed for 30 seconds. After clamping, cutting cord, the infant was suctionsed and placed skin to skin with Mother. Both stable. LABOR SUMMARY EDC: 02/04/2020 00:00 No. Babies in Womb: 1 Attempted: No Labor Anesthesia: Epidural LABOR INFORMATION Reason for Induction: Not Applicable Onset of Labor: 02/04/2020 01:50 Complete Dilatation: 02/04/2020 17:47 Oxytocin: Augmentation Group B Beta Strep: negative Antibiotics # of Doses: 2 Antibiotics Time of Last Dose: 1740 Name of Antibiotic Given: Ampicillin and Gentamicin Steroids Given: None Reason Steroids Not Administered: Not Applicable MEMBRANES Membranes Rupture Method: Spontaneous Membranes Rupture Method: Spontaneous Rupture of Membranes: 02/04/2020 01:50 Length of Rupture (hr): 17.25 Amniotic Fluid Color: Clear Amniotic Fluid Color: Clear Amniotic Fluid Amount: Small Amniotic Fluid Amount: Small Amniotic Fluid Odor: Normal Amniotic Fluid Odor: Normal STAGES OF LABOR Stage 1 hr: 15 Stage 1 min: 57 Stage 2 hr: 1 Stage 2 min: 18 Stage 3 hr: 0 Stage 3 min: 3 Total Time in Labor hr: 17 Total Time in Labor min: 18 VAGINAL DELIVERY Episiotomy: None Laceration Extension #1: Second Degree Laceration Repair: Yes Laceration Repair Note: 2-0 chromic in a layered fashion Sponge Count Correct: Yes Sharps Count Correct: Yes CSECTION DELIVERY Primary Indication: N/A Secondary Indication: N/A CSection Incidence: N/A Labor: N/A Elective: N/A CSection Incision: N/A BABY A INFORMATION Delivery Date/Time: 02/04/2020 19:05 Method of Delivery: Vaginal Nurse Controlled Delivery: No Born in Route : No : N/A Forceps: N/A Vacuum Extraction: N/A Shoulder Dystocia : No PRESENTATION/POSITION BABY A Presentation: Cephalic Presentation: Cephalic Cephalic Presentation: Vertex Vertex Position: Right Occipital Anterior Breech Presentation: N/A PLACENTA INFORMATION BABY A Placenta Delivery Time : 02/04/2020 19:08 Placenta Method of Delivery: Spontaneous Placenta Method of Delivery: Spontaneous Placenta Status: Delivered SCORES BABY A Heart Rate 1 min: >100 bpm Resp Effort 1 min: Good Cry Reflex Irritability 1 min: Cough or Sneeze or Pulls Away Muscle Tone 1 min: Active Motion Color 1 min: Body [place], Extremities Blue Resuscitation Effort 1 min: Tactile Stimulation SCORE 1 MIN: 9 Heart Rate 5 min: >100 bpm Resp Effort 5 min: Good Cry Reflex Irritability 5 min: Cough or Sneeze or Pulls Away Muscle Tone 5 min: Active Motion Color 5 min: Body [place], Extremities Blue Resuscitation Effort 5 min: N/A SCORE 5 MIN: 9 INFANT INFORMATION BABY A Gestational Age at Delivery: 40.0 Gestational Status: Full Term- 39- 40.6 Weeks Infant Outcome : Liveborn Condition : Stable Sex: Female Sex: Female IDENTIFICATION BABY A Verification Date/Time: 02/04/2020 19:19 ID Band Number: [id number] Mother's Name Verified: Yes Infant RN Verifying Infant: rn erwin Additional Verifying Personnel: rn gerry WEIGHT/LENGTH BABY A Birthweight (gm): 3453 Infant Weight (lb): 7 Weight (oz): 10 Length (in): 21.00 Length (cm): 53.34 CORD INFORMATION BABY A No. Cord Vessels: 3 Nuchal Cord : N/A Cord Blood Taken: Yes-For Eval (Mom's Blood Type - or O+) Infant Suction: Mouth; Nose ASSESSMENT BABY A Physical Findings at Delivery: Within Normal Limits Physical Findings- Other: see initial nursery assessment Respirations: Appears Normal Skin to Skin: Yes Skin to Skin: Yes Review Manager/ALS Called : No Infant Care By: Marvel Saldana, RN Transferred To: Remains with Mother BABY B INFORMATION : N/A SIGNATURES Signature: with User ID: [email or web address] : with User ID: [email or web address]
== END 2020-02-06 19:15 | disposition home or self-care (01) | DRG 805 ==
LOC: LC 02:50 → LR 03:18 → 2S 21:11
PROVIDERS: ADMIT Obstetrics & Gynecology Gynecology; ATTEND Obstetrics & Gynecology
PROC: 10E0XZZ Delivery of Products of Conception, External Approach (ICD-10-PCS; principal; 2020-02-04)
PROC: 0KQM0ZZ Repair Perineum Muscle, Open Approach (ICD-10-PCS; 2020-02-04)
DX: O24.425 Gestational diabetes mellitus in childbirth, controlled by oral hypoglycemic drugs (principal); O41.1230 Chorioamnionitis, third trimester, not applicable or unspecified; Z37.0 Single live birth; O10.92 Unspecified pre-existing hypertension complicating childbirth; O75.2 Pyrexia during labor, not elsewhere classified; O24.429 Gestational diabetes mellitus in childbirth, unspecified control; E03.9 Hypothyroidism, unspecified; O70.1 Second degree perineal laceration during delivery; O99.284 Endocrine, nutritional and metabolic diseases complicating childbirth; E28.2 Polycystic ovarian syndrome; Z3A.40 40 weeks gestation of pregnancy; Z79.899 Other long term (current) drug therapy; Z79.890 Hormone replacement therapy
CPT/HCPCS: 1967; 36415; 59025; 80053; 80170; 80307; 81005; 82570; 83615; 84156; 84550; 85025; 85027; 86592; 86695; 86696; 86850; 86900; 86901; 88307; J0131; J0290; J1580; J2300; J2550; J2590; J3010; J3490; J7050; J7060